=== PATIENT | female | born 1960 | race Caucasian/White ===

== ENCOUNTER → 2023-07-13 17:41 | Outpatient (REF) | payer BC, SELFPAY | LOC: WDC 17:41 | PROVIDERS: ATTENDING PHYSICIAN Nurse Practitioner Family; FAMILY PHYSICIAN Family Medicine | DX: Z12.31 Encounter for screening mammogram for malignant neoplasm of breast (principal) | CPT/HCPCS: 77063; 77067 ==

== ENCOUNTER → 2023-07-24 09:29 | Outpatient (REF) | payer BC, SELFPAY | LOC: WDC 09:29 | PROVIDERS: ATTENDING PHYSICIAN Nurse Practitioner Family; FAMILY PHYSICIAN Family Medicine | DX: R92.8 Other abnormal and inconclusive findings on diagnostic imaging of breast (principal) | CPT/HCPCS: 76642 ==

== ENCOUNTER → 2024-04-13 18:20 | Outpatient (REF) | payer BC, SELFPAY | LOC: MRI 3T 18:20 | PROVIDERS: ATTENDING PHYSICIAN Internal Medicine; FAMILY PHYSICIAN Family Medicine | DX: M54.59 Other low back pain (principal); M41.86 Other forms of scoliosis, lumbar region; M54.16 Radiculopathy, lumbar region | CPT/HCPCS: 72148 ==

== ENCOUNTER → 2024-07-16 13:47 | Outpatient (REF) | payer BC, SELFPAY | LOC: WDC 13:47 | PROVIDERS: ATTENDING PHYSICIAN Nurse Practitioner Family; FAMILY PHYSICIAN Family Medicine | DX: Z12.31 Encounter for screening mammogram for malignant neoplasm of breast (principal) | CPT/HCPCS: 77063; 77067 ==

== ENCOUNTER 2024-12-19 06:21 | Day surgery (SDC) | payer BC, SELFPAY | END 2024-12-19 12:33 | disposition home or self-care (01) | LOC: GI 06:21 | PROVIDERS: ATTENDING PHYSICIAN Specialist | DX: Z12.11 Encounter for screening for malignant neoplasm of colon (principal); K56.2 Volvulus; K22.89 Other specified disease of esophagus; K31.7 Polyp of stomach and duodenum; R12 Heartburn; Z86.0101 Personal history of adenomatous and serrated colon polyps | CPT/HCPCS: 43239; G0105; 88305 ==

== ENCOUNTER → 2025-01-03 12:15 | Outpatient (REF) | payer SELFPAY | LOC: RAD 12:15 | PROVIDERS: ATTENDING PHYSICIAN Family Medicine | DX: E78.49 Other hyperlipidemia (principal) | CPT/HCPCS: 75571 ==